=== PATIENT | female | born 1960 | race American Indian/Alaskan Native ===

== ENCOUNTER 2022-06-17 07:18 | Outpatient (CLI) | payer OTHER ==
--- NOTE | 2022-06-17 08:59 | XRay Report ---
Left knee-3 views INDICATION: LEFT KNEE PAIN. COMPARISON: None available. 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 Normal alignment. No significant DJD. Soft tissues are unremarkable. Signer Name: Baljinder Zamora MD Signed: 06/17/2022 8:54 AM Workstation Name: [id number]
--- NOTE | 2022-06-17 09:12 | XRay Report ---
LEFT FOOT 3 VIEWS INDICATION: LEFT FOOT PAIN. COMPARISON: None. IMPRESSION: A severe hallux valgus deformity is identified with the first metatarsophalangeal angle measuring up to 55 degrees. No acute osseous abnormality or bone lesion is detected. Mild osteoarthr itic changes are identified at the first metatarsophalangeal joint. The remaining joint spaces are un remarkable. Normal soft tissues. Signer Name: Daniel Forman Jr, MD Signed: 06/17/2022 9:08 AM Workstation Name: [id number]
== END 2022-06-17 07:19 | disposition home or self-care (01) ==
LOC: XRAY 07:18
PROVIDERS: ATTEND Internal Medicine
DX: M19.072 Primary osteoarthritis, left ankle and foot (principal); M20.12 Hallux valgus (acquired), left foot; M17.12 Unilateral primary osteoarthritis, left knee